=== PATIENT | male | born 1965 | race Caucasian/White ===

== ENCOUNTER → 2020-11-30 | Outpatient (CLI) | payer OTHER ==
--- NOTE | 2020-11-30 16:34 | RAD ---
XR KNEE_RT 1-2 VIEWS 11/30/2020 1:06 PM INDICATION: Knee pain COMPARISON: None available. TECHNIQUE: AP and lateral views of the right knee are provided. FINDINGS/ IMPRESSION: There is no acute fracture or dislocation. Joint spaces are maintained. Bone mineralization is within normal limits. Regional soft tissues are within normal limits. There is no soft tissue gas or osseou s erosion. No radiopaque foreign body. There may be a subtle small knee joint effusion. Patellar enth esopathy is present. Electronically signed by: Roxann Duncan MD (11/30/2020 4:32 PM) [id number]
== END ==
LOC: RAD 12:57
PROVIDERS: ATTEND Family Medicine
DX: M17.11 Unilateral primary osteoarthritis, right knee (principal); M76.51 Patellar tendinitis, right knee
CPT/HCPCS: 73560